=== PATIENT | male | born 1945 | race Caucasian/White ===

== ENCOUNTER 2018-05-24 14:45 | Inpatient (IN) | payer MEDICARE ==
[2018-05-24] MEDS ORDERED: HYDROmorphone 0.5 MG/0.5 ML Syringe IVPUSH ONE (14:53)
[2018-05-24] MEDS ORDERED: HYDROmorphone 0.5 MG/0.5 ML Syringe ONE (14:54)
--- NOTE | 2018-05-24 15:21 | EDM.PDOC ---
ED HPI GENERAL MEDICAL PROBLEM - General Chief Complaint: Lower Extremity Injury/Pain Stated Complaint: [facility] Time Seen by Provider: 05/24/18 15:00 Source of Information: Reports: Patient, EMS History Limitations: Reports: No Limitations - History of Present Illness INITIAL COMMENTS - FREE TEXT/NARRATIVE: 73-year-old male brought in by ambulance after slipping on the ice and landing hard on his left hip. He has significant pain, unable to move the hip or bear weight. No other injury. Onset: Sudden Duration: Hour(s): (Within the last 2 hours) Location: Reports: Lower Extremity, Left Quality: Reports: Sharp Severity: Moderate Worsens with: Reports: Other (Attempted weightbearing), Movement Associated Symptoms: Reports: No Other Symptoms Left hip Pain Score (Numeric/FACES): 8 - Related Data Allergies Allergy/AdvReac Type Severity Reaction Status Date / Time hydromorphone [From Dilaudid] Allergy Intermediate Vomiting Verified 05/24/18 18 :23 Home Meds: Home Meds NK [No Known Home Meds] 05/24/18 [History] Past Medical History - Past Surgical History Cardiovascular Surgical History: Reports: Vascular Surgery GI Surgical History: Reports: Hernia, Abdominal, Hernia, Inguinal Social & Family History - Tobacco Use Smoking Status *Q: Current Every Day Smoker Years of Tobacco use: 55 Packs/Tins Daily: 2 Review of Systems - Review of Systems Review Of Systems: See Below Constitutional: Denies: Fever Respiratory: Denies: Shortness of Breath Cardiovascular: Reports: No Symptoms GI/Abdominal: Reports: No Symptoms Skin: Denies: Bruising Neurological: Denies: Paresthesia Psychiatric: Reports: No Symptoms ED EXAM, GENERAL - Physical Exam Exam: See Below Exam Limited By: No Limitations General Appearance: Alert, Mild Distress (Fairly uncomfortable, needing pain medication) Eye Exam: Bilateral Eye: Normal Inspection Head: Atraumatic Neck: Non-Tender Respiratory/Chest: No Respiratory Distress Cardiovascular: Regular Rate, Rhythm GI/Abdominal: Non-Tender Extremities: Other (Marked tenderness with palpation of the proximal femur laterally on the left side, with increased pain with any passive range of motion ). No: Pedal Edema Neurological: Alert, Oriented Psychiatric: Anxious Skin Exam: Warm, Dry Course - Vital Signs Last Recorded V/S: Last Vital Signs Temp 98.0 F 05/25/18 06:54 Pulse 90 05/25/18 06:54 Resp 18 05/25/18 06:54 BP 127/69 05/25/18 06:54 Pulse Ox 91 L 05/25/18 06:54 - Orders/Labs/Meds Orders: Active Orders 24 hr Category Date Time Status Patient Status [ADT] Routine ADT 05/24/18 17:02 Active Antiembolic Devices [RC] .Routine Care 05/24/18 17:02 Active Bedrest Bedside Commode [RC] ASDIRECTED Care 05/24/18 17:02 Active Intake and Output [RC] QSHIFT Care 05/24/18 17:02 Active Notify Provider Consults [RC] ASDIRECTED Care 05/24/18 17:02 Active Notify Provider Vital Signs [RC] ASDIRECTED Care 05/24/18 17:02 Active Oxygen Therapy [RC] PRN Care 05/24/18 17:02 Active RT Aerosol Therapy [RC] ASDIRECTED Care 05/24/18 17:02 Active VTE/DVT Education [RC] Per Unit Routine Care 05/24/18 17:02 Active Vital Signs [RC] Q4H Care 05/24/18 17:02 Active Consult to Physician [CONS] Routine Cons 05/24/18 17:02 Ordered Nothing per Oral After Midnight Diet [DIET] Diet 05/24/18 Dinner Active Acetaminophen [Tylenol] Med 05/24/18 17:02 Active 650 mg PO Q4H PRN Albuterol [Proventil Neb Soln] Med 05/24/18 17:02 Active 2.5 mg NEB Q4H PRN Docusate Sodium/Sennosides [Senna Plus] Med 05/24/18 17:02 Active 1 tab PO BID PRN Ibuprofen [Motrin] Med 05/24/18 17:02 Active 600 mg PO Q6H PRN Lactated Ringers [Ringers, Lactated] 1,000 ml Med 05/24/18 22:00 Active IV ASDIRECTED Magnesium Hydroxide [Milk of Magnesia] Med 05/24/18 17:02 Active 30 ml PO Q12H PRN Ondansetron [Zofran ODT] Med 05/24/18 17:02 Active 4 mg PO Q6H PRN Ondansetron [Zofran] Med 05/24/18 17:02 Active 4 mg IV Q6H PRN oxyCODONE Med 05/24/18 17:02 Active 5 mg PO Q4H PRN Sequential Compression Device [OM.PC] Per Unit Routine Oth 05/24/18 17:02 Ordered VTE Pharmacological Contraindications [AST] Per Unit Oth 05/24/18 17:02 Ordered Routine Resuscitation Status Routine Resus Stat 05/24/18 16:28 Ordered Medication Orders Acetaminophen (Tylenol) 650 mg PO Q4H PRN PRN Reason: Pain (Mild 1-3)/fever Last Admin: 05/25/18 02:27 Dose: 650 mg Albuterol (Proventil Neb Soln) 2.5 mg NEB Q4H PRN PRN Reason: Shortness Of Breath/wheezing Benzocaine/Menthol (Cepacol Sore Throat) 1 lozenge MUCMEM ASDIRECTED PRN PRN Reason: Other Lactated Ringer's (Ringers, Lactated) 1,000 mls @ 100 mls/hr IV ASDIRECTED CARLOS Last Admin: 05/25/18 02:29 Dose: 100 mls/hr Ibuprofen (Motrin) 600 mg PO Q6H PRN PRN Reason: Pain/Fever Last Admin: 05/25/18 00:24 Dose: 600 mg Magnesium Hydroxide (Milk Of Magnesia) 30 ml PO Q12H PRN PRN Reason: Constipation Morphine Sulfate (Morphine) 4 mg IVPUSH Q2H PRN PRN Reason: Pain (severe 7-10) Ondansetron HCl (Zofran Odt) 4 mg PO Q6H PRN PRN Reason: Nausea able to take PO Ondansetron HCl (Zofran) 4 mg IV Q6H PRN PRN Reason: Nausea/Vomiting Last Admin: 05/24/18 17:41 Dose: 4 mg Oxycodone HCl (Oxycodone) 5 mg PO Q4H PRN PRN Reason: Pain (moderate 4-6) Last Admin: 05/25/18 02:27 Dose: 5 mg Admin: 05/24/18 22:37 Dose: 5 mg Pneumococcal Polyvalent Vaccine (Pneumovax 23) 0.5 ml IM .ONCE ONE Stop: 05/27/18 09:01 Senna/Docusate Sodium (Senna Plus) 1 tab PO BID PRN PRN Reason: Constipation Meds: Medications Generic Name Dose Route Start Last Admin Trade Name Sanderq PRN Reason Stop Dose Admin Acetaminophen 650 mg 05/24/18 17:02 05/25/18 02:27 Tylenol PO 650 mg Q4H PRN Administration Pain (Mild 1-3)/fever Albuterol 2.5 mg 05/24/18 17:02 Proventil Neb Soln NEB Q4H PRN Shortness Of Breath/wheezing Benzocaine/Menthol 1 lozenge 05/24/18 22:24 Cepacol Sore Throat MUCMEM ASDIRECTED PRN Other Lactated Ringer's 1,000 mls @ 100 mls/hr 05/24/18 22:00 05/25/18 02:29 Ringers, Lactated IV 100 mls/hr ASDIRECTED CARLOS Administration Ibuprofen 600 mg 05/24/18 17:02 05/25/18 00:24 Motrin PO 600 mg Q6H PRN Administration Pain/Fever Magnesium Hydroxide 30 ml 05/24/18 17:02 Milk Of Magnesia PO Q12H PRN Constipation Morphine Sulfate 4 mg 05/24/18 18:16 Morphine IVPUSH Q2H PRN Pain (severe 7-10) Ondansetron HCl 4 mg 05/24/18 17:02 Zofran Odt PO Q6H PRN Nausea able to take PO Ondansetron HCl 4 mg 05/24/18 17:02 05/24/18 17:41 Zofran IV 4 mg Q6H PRN Administration Nausea/Vomiting Oxycodone HCl 5 mg 05/24/18 17:02 05/25/18 02:27 Oxycodone PO 5 mg Q4H PRN Administration Pain (moderate 4-6) Pneumococcal Polyvalent Vaccine 0.5 ml 05/27/18 09:00 Pneumovax 23 IM 05/27/18 09:01 .ONCE ONE Senna/Docusate Sodium 1 tab 05/24/18 17:02 Senna Plus PO BID PRN Constipation Discontinued Medications Generic Name Dose Route Start Last Admin Trade Name Sanderq PRN Reason Stop Dose Admin Hydromorphone HCl 0.5 mg 05/24/18 14:53 05/24/18 15:12 Dilaudid IVPUSH 05/24/18 14:54 0.5 mg ONETIME ONE Administration Hydromorphone HCl Confirm 05/24/18 14:54 05/24/18 17:11 Dilaudid Administered 05/24/18 14:55 Not Given Dose 0.5 mg .ROUTE .STK-MED ONE Hydromorphone HCl 1 mg 05/24/18 17:02 05/24/18 17:21 Dilaudid IVPUSH 0.5 mg Q2H PRN Administration Pain (severe 7-10) - Re-Assessments/Exams Free Text/Narrative Re-Assessment/Exam: 05/24/18 15:20 Patient was given 0.5 mg of IV Dilaudid, and a left hip x-ray and pelvis x-ray was obtained. 05/24/18 15:52 X-ray appears to have an intertrochanteric fracture of the left hip, very little if any displacement. Discussed with orthopedics, recommendation was for admission for stabilization and surgery tomorrow. Departure - Departure Time of Disposition: 17:13 Disposition: Admitted As Inpatient 64 Condition: Good, Fair Clinical Impression: Fracture, intertrochanteric, left femur Qualifiers: Encounter type: initial encounter Fracture type: closed Fracture alignment: nondisplaced Qualified Code(s): S72.145A - Nondisplaced intertrochanteric fracture of left femur, initial encounter for closed fracture - Discharge Information
--- NOTE | 2018-05-24 15:57 | CRLCR ---
3 VIEWS pelvis and left hip INDICATION: Injury. IMPRESSION: Nondisplaced intertrochanteric fracture left femur with minimal valgus angulation. Additional small bone fragment projecting inferior to the left ischium. FINDINGS: There is a curvilinear lucency through the intertrochanteric proximal left femur with minimal valgus angulation but no displacement. Fracture is better seen on the frogleg lateral view. Mild degenerative narrowing in the left hip joint space. Atherosclerotic vascular calcifications are present. Dictated by Cash Mckeon MD @ May 24 2018 3:51PM Signed by Dr. Cash Mckeon @ May 24 2018 3:57PM
--- NOTE | 2018-05-24 16:42 | PCM.HP ---
H&P History of Present Illness - General Date of Service: 05/24/18 Admit Problem/Dx: Admission Diagnosis/Problem Admission Diagnosis/Problem Hip fracture requiring operative repair Source of Information: Patient, Provider History Limitations: Reports: No Limitations - History of Present Illness Initial Comments - Free Text/Narative: Keny presents to the emergency room today with left hip pain after slipping and falling. He reports he lost his balance while trying to open a get and fell landing on his left hip. He reported immediate severe sharp pain in the left hip. This did not radiate. He didn't take anything to make it feel better. Moving around makes the pain worse. Pain medications in the emergency room have provided some relief. He felt well prior to the fall. No complaints of shortness of breath, abdominal pain, change in bowel or bladder habits or fevers. He did have one surgery more than 50 years ago and no history of difficulty with anesthesia. No family history of difficulty with anesthesia. He reports that he is able to walk 4-5 blocks before he is slowed by mild shortness of breath. He does not have any exertional chest pain. He is able to climb up and down the stairs without any difficulty a regular basis. Workup in the emergency room revealed a nondisplaced intertrochanteric fracture left hip. Orthopedics was consult and he will be admitted for surgical intervention tomorrow. - Related Data Allergies/Adverse Reactions: Allergies Allergy/AdvReac Type Severity Reaction Status Date / Time No Known Allergies Allergy Verified 05/24/18 15:04 Home Medications: Home Meds NK [No Known Home Meds] 05/24/18 [History] Past Medical History - Past Surgical History Cardiovascular Surgical History: Reports: Vascular Surgery GI Surgical History: Reports: Hernia, Abdominal, Hernia, Inguinal Social & Family History - Family History Cardiac: Denies: CAD Oncologic: Reports: Leukemia (brother) Other Family History: No family history of difficulty with anesthesia - Tobacco Use Smoking Status *Q: Current Every Day Smoker Years of Tobacco use: 55 Packs/Tins Daily: 2 - Caffeine Use Caffeine Use: Reports: Coffee - Alcohol Use Alcohol Use History: No - Recreational Drug Use Recreational Drug Use: No H&P Review of Systems - Review of Systems: Review Of Systems: See Below Free Text/Narrative: A complete 12 point review of systems was obtained. Pertinent positives and negatives are noted in the history of present illness. All other systems were reviewed and were negative except as noted. Exam - Exam Exam: See Below - Vital Signs Vital Signs: Last Vital Signs Temp 36.0 C 05/24/18 15:10 Pulse 81 05/24/18 15:10 Resp 14 05/24/18 15:10 BP 138/71 05/24/18 15:10 Pulse Ox 92 L 05/24/18 15:10 Weight: 74.843 kg - Exam Quality Assessment: No: Supplemental Oxygen General: Alert, Oriented, Cooperative. No: Mild Distress HEENT: Conjunctiva Clear. No: Mucosa Moist & [place] (dry), Scleral Icterus Neck: Supple, Trachea Midline. No: Lymphadenopathy Lungs: Clear to Auscultation, Normal Respiratory Effort. No: Wheezing Cardiovascular: Regular Rate, Regular Rhythm, Systolic Murmur (apex, soft blowing) GI/Abdominal Exam: Normal Bowel Sounds, Soft, Non-Tender, No Distention Extremities: No Pedal Edema, Other (tender over greater trochanter). No: Increased Warmth Skin: Warm, Dry, Ecchymosis (mild left lateral hip ), Other (healed midline chest and abdominal scar) Neuro Extensive - Mental Status: Alert, Oriented x3, Nl Response to Commands Neuro Extensive - Motor, Sensory, Reflexes: CN II-XII Intact. No: Dysarthria, Abnormal Motor, Tremor Psychiatric: Alert, Normal Affect - Patient Data Imaging Impressions Last 24 hrs: Hip x-ray - images personally reviewed - there is evidence for a nondisplaced entered trochanteric fracture of the left hip. *Q Meaningful Use (ADM) - VTE *Q VTE Pharmacological Contraindications *Q: Patient Scheduled Surgery - VTE Risk Assess *Q Each Risk Factor Represents 1 Point: Abnormal Pulmonary Function (COPD) Total Score 1 Point Risk Factors: 1 Each Risk Factor Represents 3 Points: Age 75 Years or Greater Total Score 3 Point Risk Factors: 3 Each Risk Factor Represents 5 Points: Hip, Pelvis or Leg Fracture, Less than 1 month Total Score 5 Point Risk Factors: 5 - Problem List (1) Fracture, intertrochanteric, left femur SNOMED Code(s): 876794552 ICD Code: S72.142A - DISPLACED INTERTROCHANTERIC FRACTURE OF LEFT FEMUR, INIT Status: Acute Current Visit: Yes Qualifiers: Encounter type: initial encounter Fracture type: closed Fracture alignment: nondisplaced Qualified Code(s): S72.145A - Nondisplaced intertrochanteric fracture of left femur, initial encounter for closed fracture (2) Tobacco dependence SNOMED Code(s): 92654222 ICD Code: F17.200 - NICOTINE DEPENDENCE, UNSPECIFIED, UNCOMPLICATED Status : Acute Current Visit: Yes Problem List Initiated/Reviewed/Updated: Yes Orders Last 24hrs: Active Orders 24 hr Category Date Time Status Patient Status Manage Transfer [TRANSFER] Routine ADT 05/24/18 16:25 Ordered Resuscitation Status Routine Resus Stat 05/24/18 16:28 Ordered Assessment/Plan Comment:: ASSESSMENT AND PLAN - Nondisplaced intertrochanteric fracture of the left hip - secondary to fall with trauma. Pain adequately controlled at this time. Surgical intervention is indicated. Patient hasn't had a good functional status and I believe this is acceptable risk for surgery at this time. He is in optimal achievable medical condition at this time. -Orthopedics consult -Pain control -Nonweightbearing left leg -Physical therapy after surgery Tobacco dependence - no interest in quitting at this time. No history of COPD. He does have a cough. -Chest x-ray -Encourage cessation Maintenance issues - - DVT prophylaxis - mechanical - GI prophylaxis - not indicated - Nutrition - regular diet this evening and nothing by mouth after midnight - Power catheter - not indicated at this time CODE STATUS - full code Admission justification - This patient will be admitted for inpatient services and is medically appropriate meeting medical necessity for inpatient admission as outlined in my documentation. I reasonably expect the patient will require inpatient services that span a period time over 2 midnights. I reasonably expect this patient to be discharged or transferred within 96 hours after admission to the [facility]. Disposition - I would anticipate discharge home versus possibly subacute rehabilitation Calvin Beavers M.D.
[2018-05-24] MEDS ORDERED: Magnesium Hydroxide 400 MG/5 ML Susp 30 ML Cup PO PRN (17:02)
[2018-05-24] MEDS ORDERED: Albuterol 0.083% 2.5 MG/3 ML Neb Soln NEB PRN (17:02)
[2018-05-24] MEDS ORDERED: HYDROmorphone 0.5 MG/0.5 ML Syringe IVPUSH PRN (17:02)
[2018-05-24] MEDS ORDERED: Acetaminophen 325 MG Tab PO PRN (17:02)
[2018-05-24] MEDS: Ondansetron 4 MG/2 ML SDV IV PRN (17:41)
[2018-05-24] MEDS ORDERED: Morphine 4 MG/ML Syringe IVPUSH PRN (18:16)
--- NOTE | 2018-05-24 20:02 | CRLCR ---
INDICATION: Cough. Portable chest. COMPARISON: No comparison studies are available. Findings: Normal cardiac mediastinal silhouette. Median sternotomy. No acute airspace or interstitial process. No effusion or pneumothorax. IMPRESSION: 1. No acute pulmonary process. Dictated by Niya Stevens MD @ May 24 2018 8:01PM Signed by Dr. Niya Stevens @ May 24 2018 8:01PM
[2018-05-24] MEDS ORDERED: Benzocaine/Cetylpyridinium/Menthol Lozenge MUCMEM PRN (22:24)
[2018-05-24] MEDS: oxyCODONE 5 MG Tab PO PRN (22:37)
[2018-05-25] MEDS: Ibuprofen 600 MG Tab PO PRN (00:24)
[2018-05-25] MEDS: oxyCODONE 5 MG Tab PO PRN ×3 (02:27→21:57)
[2018-05-25] MEDS: Lactated Ringers 1,000 ML IV SCH ×3 (02:29→22:00)
[2018-05-25] MEDS ORDERED: Propofol 200 MG/20 ML SDV ONE (08:18)
[2018-05-25] MEDS ORDERED: fentaNYL 100 MCG/2 ML SDV ONE (08:18)
[2018-05-25] MEDS ORDERED: Midazolam 1 MG/ML 2 ML SDV ONE (08:18)
[2018-05-25] MEDS ORDERED: Bupivacaine 0.5%/EPINEPHrine 1:200,000 50 ML MDV ONE (08:21)
--- NOTE | 2018-05-25 12:22 | PCM.PN ---
- General Info Date of Service: 05/25/18 Subjective Update: Mr. Morgan is a 73-year-old gentleman who was admitted yesterday to the emergency department with a left intertrochanteric hip fracture secondary to a fall. He is been stable overnight using minimal pain medications. Plan is for surgical repair today. Functional Status: Reports: Pain Controlled - Review of Systems General: Denies: Fever, Chills Pulmonary: Reports: No Symptoms Cardiovascular: Reports: No Symptoms Gastrointestinal: Reports: No Symptoms - Patient Data Vitals - Most Recent: Last Vital Signs Temp 98.0 F 05/25/18 11:00 Pulse 92 05/25/18 11:00 Resp 20 05/25/18 11:00 BP 136/58 L 05/25/18 11:00 Pulse Ox 83 L 05/25/18 11:00 Weight - Most Recent: 165 lb 0.009 oz I&O - Last 24 Hours: Intake & Output 05/24/18 05/25/18 05/25/18 22:59 06:59 14:59 Intake Total 1747 Output Total 600 275 Balance -600 1472 Lab Results Last 24 Hours: Laboratory Results - last 24 hr 05/24/18 05/24/18 05/25/18 Range/Units 17:19 17:19 05:58 WBC 19.7 H (4.5-11.0) K/uL RBC 5.59 (4.30-5.90) M/uL Hgb 15.9 H (12.0-15.0) g/dL Hct 49.7 (40.0-54.0) % MCV 89 (80-98) fL MCH 28 (27-31) pg MCHC 32 (32-36) % Plt Count 333 (150-400) K/uL Sodium 143 139 L (140-148) mmol/L Potassium 4.3 4.2 (3.6-5.2) mmol/L Chloride 106 106 (100-108) mmol/L Carbon Dioxide 31 28 (21-32) mmol/L Anion Gap 6.4 9.2 (5.0-14.0) mmol/L BUN 39 H 38 H (7-18) mg/dL Creatinine 1.4 H 1.4 H (0.8-1.3) mg/dL Est Cr Clr Drug Dosing 48.26 48.26 mL/min Estimated GFR (MDRD) 49 L 49 L (>60) Glucose 105 111 H (74-106) mg/dL Calcium 8.9 8.3 L (8.5-10.1) mg/dL 05/25/18 Range/Units 05:58 WBC 13.9 H (4.5-11.0) K/uL RBC 4.93 (4.30-5.90) M/uL Hgb 14.3 (12.0-15.0) g/dL Hct 43.7 (40.0-54.0) % MCV 89 (80-98) fL MCH 29 (27-31) pg MCHC 33 (32-36) % Plt Count 264 (150-400) K/uL Sodium (140-148) mmol/L Potassium (3.6-5.2) mmol/L Chloride (100-108) mmol/L Carbon Dioxide (21-32) mmol/L Anion Gap (5.0-14.0) mmol/L BUN (7-18) mg/dL Creatinine (0.8-1.3) mg/dL Est Cr Clr Drug Dosing mL/min Estimated GFR (MDRD) (>60) Glucose (74-106) mg/dL Calcium (8.5-10.1) mg/dL Med Orders - Current: Current Medications Acetaminophen (Tylenol) 650 mg PO Q4H PRN PRN Reason: Pain (Mild 1-3)/fever Last Admin: 05/25/18 02:27 Dose: 650 mg Albuterol (Proventil Neb Soln) 2.5 mg NEB Q4H PRN PRN Reason: Shortness Of Breath/wheezing Benzocaine/Menthol (Cepacol Sore Throat) 1 lozenge MUCMEM ASDIRECTED PRN PRN Reason: Other Lactated Ringer's (Ringers, Lactated) 1,000 mls @ 100 mls/hr IV ASDIRECTED CARLOS Last Admin: 05/25/18 11:05 Dose: 100 mls/hr Ibuprofen (Motrin) 600 mg PO Q6H PRN PRN Reason: Pain/Fever Last Admin: 05/25/18 00:24 Dose: 600 mg Magnesium Hydroxide (Milk Of Magnesia) 30 ml PO Q12H PRN PRN Reason: Constipation Morphine Sulfate (Morphine) 4 mg IVPUSH Q2H PRN PRN Reason: Pain (severe 7-10) Ondansetron HCl (Zofran Odt) 4 mg PO Q6H PRN PRN Reason: Nausea able to take PO Ondansetron HCl (Zofran) 4 mg IV Q6H PRN PRN Reason: Nausea/Vomiting Last Admin: 05/24/18 17:41 Dose: 4 mg Oxycodone HCl (Oxycodone) 5 mg PO Q4H PRN PRN Reason: Pain (moderate 4-6) Last Admin: 05/25/18 02:27 Dose: 5 mg Pneumococcal Polyvalent Vaccine (Pneumovax 23) 0.5 ml IM .ONCE ONE Stop: 05/27/18 09:01 Senna/Docusate Sodium (Senna Plus) 1 tab PO BID PRN PRN Reason: Constipation Discontinued Medications Bupivacaine HCl/Epinephrine Bitart (Marcaine 0.5%/Epinephrine 1:200,000) Confirm Administered Dose 50 ml .ROUTE .STK-MED ONE Stop: 05/25/18 08:22 Fentanyl (Sublimaze) Confirm Administered Dose 100 mcg .ROUTE .STK-MED ONE Stop: 05/25/18 08:19 Hydromorphone HCl (Dilaudid) 0.5 mg IVPUSH ONETIME ONE Stop: 05/24/18 14:54 Last Admin: 05/24/18 15:12 Dose: 0.5 mg Hydromorphone HCl (Dilaudid) Confirm Administered Dose 0.5 mg .ROUTE .STK-MED ONE Stop: 05/24/18 14:55 Last Admin: 05/24/18 17:11 Dose: Not Given Hydromorphone HCl (Dilaudid) 1 mg IVPUSH Q2H PRN PRN Reason: Pain (severe 7-10) Last Admin: 05/24/18 17:21 Dose: 0.5 mg Midazolam HCl (Versed 1 Mg/Ml) Confirm Administered Dose 2 mg .ROUTE .STK-MED ONE Stop: 05/25/18 08:19 Propofol (Diprivan 20 Ml) Confirm Administered Dose 200 mg .ROUTE .STK-MED ONE Stop: 05/25/18 08:19 - Exam Quality Assessment: DVT Prophylaxis General: Alert, Oriented, Cooperative, Moderate Distress Lungs: Clear to Auscultation, Normal Respiratory Effort Cardiovascular: Regular Rate, Regular Rhythm, No Murmurs GI/Abdominal Exam: Soft, Non-Tender, No Organomegaly, No Distention - Problem List Review Problem List Initiated/Reviewed/Updated: Yes - My Orders Last 24 Hours: My Active Orders 05/26/18 05:00 BASIC METABOLIC PANEL,BMP [CHEM] Timed CBC WITH AUTO DIFF [HEME] Timed MAGNESIUM [CHEM] Timed - Plan Plan:: ASSESSMENT AND PLAN - Nondisplaced intertrochanteric fracture of the left hip - secondary to fall with trauma. Pain adequately controlled at this time. Surgical intervention is indicated. -Orthopedics consult, surgical repair today -Pain control -Nonweightbearing left leg -Physical therapy after surgery Tobacco dependence - no interest in quitting at this time. No history of COPD. He does have a cough. -Chest x-ray -Encourage cessation Maintenance issues - - DVT prophylaxis - mechanical - GI prophylaxis - not indicated - Nutrition - regular diet this evening and nothing by mouth after midnight - Power catheter - not indicated at this time CODE STATUS - full code Admission justification - This patient will be admitted for inpatient services and is medically appropriate meeting medical necessity for inpatient admission as outlined in my documentation. I reasonably expect the patient will require inpatient services that span a period time over 2 midnights. I reasonably expect this patient to be discharged or transferred within 96 hours [facility] Disposition - I would anticipate discharge home versus possibly subacute rehabilitation
[2018-05-25] MEDS ORDERED: Nozin Nasal Sanitizer NASBOTH ONE (12:53)
[2018-05-25] MEDS ORDERED: Lactated Ringers 1,000 ML ONE (14:53)
--- NOTE | 2018-05-25 16:17 | PCM.CONS ---
H&P History of Present Illness - General Date of Service: 05/25/18 Admit Problem/Dx: Admission Diagnosis/Problem Admission Diagnosis/Problem Hip fracture requiring operative repair Source of Information: Patient, Family, Provider History Limitations: Reports: No Limitations - History of Present Illness Initial Comments - Free Text/Narative: Trent is a very pleasant 73-year-old male who sustained a fall getting ready to go to work on the day of admission. He still works as a cashier host/hostess.Evaluation in the emergency room revealed a nondisplaced intertrochanteric fracture of the left hip.He was admitted for treatment of the hip fracture. Recommend treatment of the fracture with fixation using an intramedullary device. Risks, benefits and potential complications of the procedure were discussed and he agrees to proceed. Onset of Symptoms: Reports: Sudden Location: Reports: Lower Extremity, Left Improves with: Reports: Immobilization Worsens with: Reports: Movement Associated Symptoms: Reports: No Other Symptoms Left hip Pain Score (Numeric/FACES): 8 - Related Data Allergies/Adverse Reactions: Allergies Allergy/AdvReac Type Severity Reaction Status Date / Time hydromorphone [From Dilaudid] Allergy Intermediate Vomiting Verified 05/24/18 18 :23 Home Medications: Home Meds NK [No Known Home Meds] 05/24/18 [History] Past Medical History - Past Surgical History Cardiovascular Surgical History: Reports: Vascular Surgery GI Surgical History: Reports: Hernia, Abdominal, Hernia, Inguinal Social & Family History - Family History Cardiac: Denies: CAD Oncologic: Reports: Leukemia Other Family History: No family history of difficulty with anesthesia - Tobacco Use Smoking Status *Q: Current Every Day Smoker Years of Tobacco use: 55 Packs/Tins Daily: 2 - Caffeine Use Caffeine Use: Reports: Coffee - Recreational Drug Use Recreational Drug Use: No H&P Review of Systems - Review of Systems: Review Of Systems: ROS reveals no pertinent complaints other than HPI. Exam - Exam Exam: See Below - Vital Signs Vital Signs: Last Vital Signs Temp 36.4 C 05/25/18 15:45 Pulse 86 05/25/18 15:45 Resp 16 05/25/18 15:45 BP 113/56 L 05/25/18 15:45 Pulse Ox 90 L 05/25/18 15:45 Weight: 74.843 kg - Exam General: Alert, Oriented, 4 HEENT: PERRLA, Hearing Intact, Mucosa Moist & [place], Nares Patent, Normal Nasal Septum, Posterior Pharynx Clear, Conjunctiva Clear, EOMI, EACs Clear, TMs Clear Neck: Supple, Trachea Midline, 2 Peripheral Pulses: 2+: Dorsalis Pedis (L), Dorsalis Pedis (R) Skin: Warm, Dry, Intact Neurological: Cranial Nerves Intact, Reflexes Equal Bilateral Neuro Extensive - Mental Status: Alert, Oriented x3, Normal Mood/Affect, Normal Cognition Neuro Extensive - Motor, Sensory, Reflexes: CN II-XII Intact, Normal Gait, Normal Reflexes Psychiatric: Alert, Normal Affect, Normal Mood Physical Exam Comments:: He has pain with attempted active motion and log roll of the left hip. There is no discernible limb length discrepancy. there is no deformity or significant bruising of the left hip. No skin lacerations.His sensation distally is normal. - Patient Data Lab Results Last 24 hrs: Laboratory Results - last 24 hr 05/24/18 05/24/18 05/25/18 Range/Units 17:: 05:58 WBC 19.7 H (4.5-11.0) K/uL RBC 5.59 (4.30-5.90) M/uL Hgb 15.9 H (12.0-15.0) g/dL Hct 49.7 (40.0-54.0) % MCV 89 (80-98) fL MCH 28 (27-31) pg MCHC 32 (32-36) % Plt Count 333 (150-400) K/uL Sodium 143 139 L (140-148) mmol/L Potassium 4.3 4.2 (3.6-5.2) mmol/L Chloride 106 106 (100-108) mmol/L Carbon Dioxide 31 28 (21-32) mmol/L Anion Gap 6.4 9.2 (5.0-14.0) mmol/L BUN 39 H 38 H (7-18) mg/dL Creatinine 1.4 H 1.4 H (0.8-1.3) mg/dL Est Cr Clr Drug Dosing 48.26 48.26 mL/min Estimated GFR (MDRD) 49 L 49 L (>60) Glucose 105 111 H (74-106) mg/dL Calcium 8.9 8.3 L (8.5-10.1) mg/dL 05/25/18 Range/Units 05:58 WBC 13.9 H (4.5-11.0) K/uL RBC 4.93 (4.30-5.90) M/uL Hgb 14.3 (12.0-15.0) g/dL Hct 43.7 (40.0-54.0) % MCV 89 (80-98) fL MCH 29 (27-31) pg MCHC 33 (32-36) % Plt Count 264 (150-400) K/uL Sodium (140-148) mmol/L Potassium (3.6-5.2) mmol/L Chloride (100-108) mmol/L Carbon Dioxide (21-32) mmol/L Anion Gap (5.0-14.0) mmol/L BUN (7-18) mg/dL Creatinine (0.8-1.3) mg/dL Est Cr Clr Drug Dosing mL/min Estimated GFR (MDRD) (>60) Glucose (74-106) mg/dL Calcium (8.5-10.1) mg/dL Result Diagrams: 05/26/18 06:01 05/26/18 06:01 Consult PN Assessment/Plan (1) Fracture, intertrochanteric, left femur SNOMED Code(s): 418610899 Code(s): S72.142A - DISPLACED INTERTROCHANTERIC FRACTURE OF LEFT FEMUR, INIT Current Visit: Yes Qualifiers: Encounter type: initial encounter Fracture type: closed Fracture alignment: nondisplaced Qualified Code(s): S72.145A - Nondisplaced intertrochanteric fracture of left femur, initial encounter for closed fracture Problem List Initiated/Reviewed/Updated: Yes My Orders Last 24 Hours: My Active Orders 05/25/18 13:00 OR Fluoro-NC [CR] Routine 05/25/18 15:20 Consult to Physical Therapy [PT Evaluation and Treatment] [CONS] Routine 05/25/18 15:21 Consult to Occupational Therapy [OT Evaluation and Treatment] [CONS] Routine 05/25/18 Dinner Heart Healthy Diet [DIET] Plan: plan fixation of intertrochanteric fracture left hip with a intramedullary nail. Procedure was discussed with the patient and his family. There are no contraindications to surgery.Plan to proceed with that today.
[2018-05-26] MEDS: oxyCODONE 5 MG Tab PO PRN ×2 (07:35→13:39)
--- NOTE | 2018-05-26 07:59 | PCM.OPNOTE ---
- General Post-Op/Procedure Note Date of Surgery/Procedure: 05/25/18 Operative Procedure(s): open treatment of intertrochanteric fracture left hip with intramedullary fixation device. Findings: nondisplaced intertrochanteric fracture left hip Pre Op Diagnosis: Nondisplaced intertrochanteric fracture left hip Post-Op Diagnosis: same Anesthesia Technique: Spinal Primary Surgeon: Dylan Paris EBL in mLs: 50 Complications: None Condition: Good Free Text/Narrative:: Intake & Output 05/25/18 05/26/18 05/26/18 22:59 06:59 14:59 Intake Total 915 1141 Output Total 300 465 50 Balance 615 676 -50 Indications: Patient is a 73-year-old male sustained a fall resulting in an intertrochanteric fracture of his left hip. He is admitted for surgical fixation of the fracture. Risks, benefits and potential complications of surgery as well as nonoperative treatment were discussed. Patient agrees to proceed with surgery. procedure: After adequate spinal anesthesia was obtained and administration of preoperative antibiotic patient was placed on the fracture table. Left leg was placed in the traction boot. Right leg was placed in a flexed position in the well leg larios. Fluoroscopy was used to evaluate the fracture. This was maintained in a nondisplaced position.The left hip was then prepped and draped in a sterile fashion. Small incision was made from the tip of the trochanter distally. This was carried down through the subcutaneous tissues. Tensor fascia was then split and blunt dissection carried down to the tip of the trochanter.A guidepin was then placed under fluoroscopic guidance into the trochanter and femoral canal.Soft tissue protector was placed and the large reamer was placed over the guidepin and into the femoral canal.a 12 mm diameter tu was then placed using the guide arm across the fracture. Position was confirmed using fluoroscopy.The guide for the femoral neck screw was then placed. A separate incision was made distal to the trochanter. Carried down through the skin and fascia vidhi. The guide was then positioned against the lateral cortex and the guide pin then placed up into the femoral head and neck. Position was confirmed using AP and lateral images. Lateral cortex was drilled. Screw was then tapped into position over the guide pin into the femoral head. Position was confirmed using fluoro Separate small incision was made. Cannula was placed against the cortex and drilled. This was measured to a 36 mm screw. the screw was placed and position confirmed. The insertion arm was then removed. Final position and fixation was confirmed using fluoroscopy in AP and lateral images. Wounds were irrigated. Tensor fascia was closed the proximal incision with0 Vicryl. Skin was closed with 2-0 Vicryl and a running 3-0 Monocryl.The smaller incisions were closed with 2-0 Vicryl and 3-0 Monocryl. Steri-Strips were applied.Sterile gauze dressing was placed and held in position with cloth tape.Patient tolerated the procedure very well there were no complications and he was taken from the operating room in a stable condition.
[2018-05-26] MEDS: Ondansetron 4 MG/2 ML SDV IV PRN (09:10)
[2018-05-26] MEDS: Magnesium Oxide 400 MG Tab PO SCH ×2 (10:34→20:15)
[2018-05-26] MEDS: Magnesium Sulfate/Water 2 GM in Premix Bag 1 BAG IV SCH ×2 (10:35→16:28)
[2018-05-26] MEDS: Lactated Ringers 1,000 ML IV SCH (10:37)
[2018-05-26] MEDS: Ibuprofen 600 MG Tab PO PRN ×2 (12:21→20:15)
--- NOTE | 2018-05-26 13:15 | PCM.PN ---
- General Info Date of Service: 05/26/18 Subjective Update: Mr. Morgan is status post surgical repair of hip fracture done yesterday by Dr. Paris. He has been stable since surgery with good vital signs and no significant temperature elevations. He did have an episode of nausea vomiting earlier this morning, but was feeling improved when seen later in the morning. Functional Status: Reports: Pain Controlled, Ambulating, Urinating - Review of Systems General: Reports: Weakness. Denies: Fever, Chills Pulmonary: Reports: No Symptoms Cardiovascular: Reports: No Symptoms Gastrointestinal: Reports: Nausea, Vomiting. Denies: Abdominal Pain, Difficulty Swallowing, Hematochezia, Melena - Patient Data Vitals - Most Recent: Last Vital Signs Temp 97 F 05/26/18 10:52 Pulse 75 05/26/18 10:52 Resp 24 H 05/26/18 10:52 BP 148/72 H 05/26/18 10:52 Pulse Ox 93 L 05/26/18 10:52 Weight - Most Recent: 165 lb 0.009 oz I&O - Last 24 Hours: Intake & Output 05/25/18 05/26/18 05/26/18 22:59 06:59 14:59 Intake Total 915 1141 468 Output Total 300 465 290 Balance 615 676 178 Lab Results Last 24 Hours: Laboratory Results - last 24 hr 05/26/18 05/26/18 05/26/18 Range/Units 01:38 06:01 06:01 WBC 12.5 H (4.5-11.0) K/uL RBC 4.85 (4.30-5.90) M/uL Hgb 13.8 (12.0-15.0) g/dL Hct 42.6 (40.0-54.0) % MCV 88 (80-98) fL MCH 29 (27-31) pg MCHC 32 (32-36) % Plt Count 233 (150-400) K/uL Neut % (Auto) 72 H (36-66) % Lymph % (Auto) 12 L (24-44) % [place] % (Auto) 14 H (2-6) % Eos % (Auto) 2 (2-4) % Baso % (Auto) 1 (0-1) % Sodium 138 L (140-148) mmol/L Potassium 4.2 (3.6-5.2) mmol/L Chloride 104 (100-108) mmol/L Carbon Dioxide 27 (21-32) mmol/L Anion Gap 11.2 (5.0-14.0) mmol/L BUN 23 H (7-18) mg/dL Creatinine 1.1 (0.8-1.3) mg/dL Est Cr Clr Drug Dosing 61.42 mL/min Estimated GFR (MDRD) > 60 (>60) Glucose 99 (74-106) mg/dL Calcium 8.2 L (8.5-10.1) mg/dL Magnesium 1.5 L (1.8-2.4) mg/dL Urine Color Yellow Urine Appearance Clear Urine pH 6.5 (4.5-8.0) Ur Specific [place] 1.015 (1.008-1.030) Urine Protein Trace (NEGATIVE) mg/dL Urine Glucose (UA) Normal (NEGATIVE) mg/dL Urine Ketones 15 H (NEGATIVE) mg/dL Urine Occult Blood Trace (NEGATIVE) Urine Nitrite Negative (NEGAITVE) Urine Bilirubin Negative (NEGATIVE) Urine Urobilinogen Normal (NORMAL) mg/dL Ur Leukocyte Esterase Negative (NEGATIVE) Urine RBC 0-5 (0-5) Urine WBC 0-5 (0-5) Ur Epithelial Cells Few Amorphous Sediment Not seen Urine Bacteria Few Urine Mucus Not seen Med Orders - Current: Current Medications Acetaminophen (Tylenol) 650 mg PO Q4H PRN PRN Reason: Pain (Mild 1-3)/fever Last Admin: 05/25/18 02:27 Dose: 650 mg Albuterol (Proventil Neb Soln) 2.5 mg NEB Q4H PRN PRN Reason: Shortness Of Breath/wheezing Last Admin: 05/25/18 12:42 Dose: 2.5 mg Benzocaine/Menthol (Cepacol Sore Throat) 1 lozenge MUCMEM ASDIRECTED PRN PRN Reason: Other Lactated Ringer's (Ringers, Lactated) 1,000 mls @ 100 mls/hr IV ASDIRECTED CARLOS Last Admin: 05/26/18 10:37 Dose: 100 mls/hr Magnesium Sulfate 2 gm/ Premix 50 mls @ 25 mls/hr IV Q6H CARLOS Stop: 05/26/18 17:59 Last Admin: 05/26/18 10:35 Dose: 25 mls/hr Ibuprofen (Motrin) 600 mg PO Q6H PRN PRN Reason: Pain/Fever Last Admin: 05/26/18 12:21 Dose: 600 mg Magnesium Hydroxide (Milk Of Magnesia) 30 ml PO Q12H PRN PRN Reason: Constipation Magnesium Oxide (Magnesium Oxide) 400 mg PO BID CARLOS Last Admin: 05/26/18 10:34 Dose: 400 mg Morphine Sulfate (Morphine) 4 mg IVPUSH Q2H PRN PRN Reason: Pain (severe 7-10) Ondansetron HCl (Zofran Odt) 4 mg PO Q6H PRN PRN Reason: Nausea able to take PO Ondansetron HCl (Zofran) 4 mg IV Q6H PRN PRN Reason: Nausea/Vomiting Last Admin: 05/26/18 09:10 Dose: 4 mg Oxycodone HCl (Oxycodone) 5 mg PO Q4H PRN PRN Reason: Pain (moderate 4-6) Last Admin: 05/26/18 07:35 Dose: 5 mg Pneumococcal Polyvalent Vaccine (Pneumovax 23) 0.5 ml IM .ONCE ONE Stop: 05/27/18 09:01 Senna/Docusate Sodium (Senna Plus) 1 tab PO BID PRN PRN Reason: Constipation Last Admin: 05/26/18 07:41 Dose: 1 tab Discontinued Medications Bandage/Support Products ( Nasal Fabric Normalizer) 1 applic NASBOTH ONETIME ONE Stop: 05/25/18 12:54 Last Admin: 05/25/18 13:00 Dose: 1 dose Bupivacaine HCl/Epinephrine Bitart (Marcaine 0.5%/Epinephrine 1:200,000) Confirm Administered Dose 50 ml .ROUTE .STK-MED ONE Stop: 05/25/18 08:22 Fentanyl (Sublimaze) Confirm Administered Dose 100 mcg .ROUTE .STK-MED ONE Stop: 05/25/18 08:19 Hydromorphone HCl (Dilaudid) 0.5 mg IVPUSH ONETIME ONE Stop: 05/24/18 14:54 Last Admin: 05/24/18 15:12 Dose: 0.5 mg Hydromorphone HCl (Dilaudid) Confirm Administered Dose 0.5 mg .ROUTE .STK-MED ONE Stop: 05/24/18 14:55 Last Admin: 05/24/18 17:11 Dose: Not Given Hydromorphone HCl (Dilaudid) 1 mg IVPUSH Q2H PRN PRN Reason: Pain (severe 7-10) Last Admin: 05/24/18 17:21 Dose: 0.5 mg Lactated Ringer's (Ringers, Lactated) Confirm Administered Dose 1,000 mls @ as directed .ROUTE .STK-MED ONE Stop: 05/25/18 14:54 Midazolam HCl (Versed 1 Mg/Ml) Confirm Administered Dose 2 mg .ROUTE .STK-MED ONE Stop: 05/25/18 08:19 Propofol (Diprivan 20 Ml) Confirm Administered Dose 200 mg .ROUTE .STK-MED ONE Stop: 05/25/18 08:19 - Exam Quality Assessment: DVT Prophylaxis General: Alert, Oriented, Cooperative, Mild Distress Lungs: Clear to Auscultation, Normal Respiratory Effort Cardiovascular: Regular Rate, Regular Rhythm, No Murmurs GI/Abdominal Exam: Soft, Non-Tender, No Organomegaly, No Distention - Problem List Review Problem List Initiated/Reviewed/Updated: Yes - My Orders Last 24 Hours: My Active Orders 05/26/18 09:15 Magnesium Oxide 400 mg PO BID 05/26/18 10:00 Magnesium Sulfate/Water [Magnesium Sulfate 2 GM in Water 50 ML] 2 gm Premix Bag 1 bag IV Q6H 05/27/18 05:00 MAGNESIUM [CHEM] Timed - Plan Plan:: ASSESSMENT AND PLAN - Nondisplaced intertrochanteric fracture of the left hip - secondary to fall with trauma. Status post surgical repair yesterday. -Postoperative care per Dr. Paris Tobacco dependence - no interest in quitting at this time. No history of COPD. -Encourage cessation Maintenance issues - - DVT prophylaxis - mechanical - GI prophylaxis - not indicated - Nutrition - regular diet this evening and nothing by mouth after midnight - Power catheter - not indicated at this time CODE STATUS - full code Admission justification - This patient will be admitted for inpatient services and is medically appropriate meeting medical necessity for inpatient admission as outlined in my documentation. I reasonably expect the patient will require inpatient services that span a period time over 2 midnights. I reasonably expect this patient to be discharged or transferred within 96 hours [facility]. Disposition - I would anticipate discharge home versus possibly subacute rehabilitation
[2018-05-26] MEDS: Ondansetron 4 MG Tab.DIS PO PRN ×2 (13:40→20:15)
[2018-05-26] MEDS ORDERED: Acetaminophen/HYDROcodone 325-5 MG Tab PO PRN (17:13)
--- NOTE | 2018-05-26 17:20 | PCM.SURGPN ---
- General Info Date of Service: 05/26/18 POD#: 1 Post-Op Diagnosis: S/P intrameduillary nail left hip - Review of Systems Gastrointestinal: Reports: Nausea Neurological: Reports: No Symptoms Psychiatric: Reports: No Symptoms (Nausea and vomiting with oxycodone) - Patient Data Vitals - Most Recent: Last Vital Signs Temp 36.3 C 05/26/18 16:22 Pulse 81 05/26/18 16:22 Resp 20 05/26/18 16:22 BP 131/79 05/26/18 16:22 Pulse Ox 92 L 05/26/18 16:22 Weight - Most Recent: 74.843 kg I&O - Last 24 Hours: Intake & Output 05/26/18 05/26/18 05/26/18 06:59 14:59 22:59 Intake Total 1141 518 Output Total 465 490 250 Balance 676 28 -250 Lab Results Last 24 Hrs: Laboratory Results - last 24 hr 05/26/18 05/26/18 05/26/18 Range/Units 01:38 06:01 06:01 WBC 12.5 H (4.5-11.0) K/uL RBC 4.85 (4.30-5.90) M/uL Hgb 13.8 (12.0-15.0) g/dL Hct 42.6 (40.0-54.0) % MCV 88 (80-98) fL MCH 29 (27-31) pg MCHC 32 (32-36) % Plt Count 233 (150-400) K/uL Neut % (Auto) 72 H (36-66) % Lymph % (Auto) 12 L (24-44) % [place] % (Auto) 14 H (2-6) % Eos % (Auto) 2 (2-4) % Baso % (Auto) 1 (0-1) % Sodium 138 L (140-148) mmol/L Potassium 4.2 (3.6-5.2) mmol/L Chloride 104 (100-108) mmol/L Carbon Dioxide 27 (21-32) mmol/L Anion Gap 11.2 (5.0-14.0) mmol/L BUN 23 H (7-18) mg/dL Creatinine 1.1 (0.8-1.3) mg/dL Est Cr Clr Drug Dosing 61.42 mL/min Estimated GFR (MDRD) > 60 (>60) Glucose 99 (74-106) mg/dL Calcium 8.2 L (8.5-10.1) mg/dL Magnesium 1.5 L (1.8-2.4) mg/dL Urine Color Yellow Urine Appearance Clear Urine pH 6.5 (4.5-8.0) Ur Specific [place] 1.015 (1.008-1.030) Urine Protein Trace (NEGATIVE) mg/dL Urine Glucose (UA) Normal (NEGATIVE) mg/dL Urine Ketones 15 H (NEGATIVE) mg/dL Urine Occult Blood Trace (NEGATIVE) Urine Nitrite Negative (NEGAITVE) Urine Bilirubin Negative (NEGATIVE) Urine Urobilinogen Normal (NORMAL) mg/dL Ur Leukocyte Esterase Negative (NEGATIVE) Urine RBC 0-5 (0-5) Urine WBC 0-5 (0-5) Ur Epithelial Cells Few Amorphous Sediment Not seen Urine Bacteria Few Urine Mucus Not seen Med Orders - Current: Current Medications Acetaminophen (Tylenol) 650 mg PO Q4H PRN PRN Reason: Pain (Mild 1-3)/fever Last Admin: 05/25/18 02:27 Dose: 650 mg Albuterol (Proventil Neb Soln) 2.5 mg NEB Q4H PRN PRN Reason: Shortness Of Breath/wheezing Last Admin: 05/25/18 12:42 Dose: 2.5 mg Benzocaine/Menthol (Cepacol Sore Throat) 1 lozenge MUCMEM ASDIRECTED PRN PRN Reason: Other Lactated Ringer's (Ringers, Lactated) 1,000 mls @ 100 mls/hr IV ASDIRECTED [facility] Last Admin: 05/26/18 10:37 Dose: 100 mls/hr Magnesium Sulfate 2 gm/ Premix 50 mls @ 25 mls/hr IV Q6H [facility] Stop: 05/26/18 17:59 Last Admin: 05/26/18 16:28 Dose: 25 mls/hr Ibuprofen (Motrin) 600 mg PO Q6H PRN PRN Reason: Pain/Fever Last Admin: 05/26/18 12:21 Dose: 600 mg Magnesium Hydroxide (Milk Of Magnesia) 30 ml PO Q12H PRN PRN Reason: Constipation Magnesium Oxide (Magnesium Oxide) 400 mg PO BID [facility] Last Admin: 05/26/18 10:34 Dose: 400 mg Morphine Sulfate (Morphine) 4 mg IVPUSH Q2H PRN PRN Reason: Pain (severe 7-10) Ondansetron HCl (Zofran Odt) 4 mg PO Q6H PRN PRN Reason: Nausea able to take PO Last Admin: 05/26/18 13:40 Dose: 4 mg Ondansetron HCl (Zofran) 4 mg IV Q6H PRN PRN Reason: Nausea/Vomiting Last Admin: 05/26/18 09:10 Dose: 4 mg Pneumococcal Polyvalent Vaccine (Pneumovax 23) 0.5 ml IM .ONCE ONE Stop: 05/27/18 09:01 Senna/Docusate Sodium (Senna Plus) 1 tab PO BID PRN PRN Reason: Constipation Last Admin: 05/26/18 07:41 Dose: 1 tab Discontinued Medications Bandage/Support Products ( Nasal Educational Aide) 1 applic NASBOTH ONETIME ONE Stop: 05/25/18 12:54 Last Admin: 05/25/18 13:00 Dose: 1 dose Bupivacaine HCl/Epinephrine Bitart (Marcaine 0.5%/Epinephrine 1:200,000) Confirm Administered Dose 50 ml .ROUTE .STK-MED ONE Stop: 05/25/18 08:22 Fentanyl (Sublimaze) Confirm Administered Dose 100 mcg .ROUTE .STK-MED ONE Stop: 05/25/18 08:19 Hydromorphone HCl (Dilaudid) 0.5 mg IVPUSH ONETIME ONE Stop: 05/24/18 14:54 Last Admin: 05/24/18 15:12 Dose: 0.5 mg Hydromorphone HCl (Dilaudid) Confirm Administered Dose 0.5 mg .ROUTE .STK-MED ONE Stop: 05/24/18 14:55 Last Admin: 05/24/18 17:11 Dose: Not Given Hydromorphone HCl (Dilaudid) 1 mg IVPUSH Q2H PRN PRN Reason: Pain (severe 7-10) Last Admin: 05/24/18 17:21 Dose: 0.5 mg Lactated Ringer's (Ringers, Lactated) Confirm Administered Dose 1,000 mls @ as directed .ROUTE .STK-MED ONE Stop: 05/25/18 14:54 Midazolam HCl (Versed 1 Mg/Ml) Confirm Administered Dose 2 mg .ROUTE .STK-MED ONE Stop: 05/25/18 08:19 Oxycodone HCl (Oxycodone) 5 mg PO Q4H PRN PRN Reason: Pain (moderate 4-6) Last Admin: 05/26/18 13:39 Dose: 5 mg Propofol (Diprivan 20 Ml) Confirm Administered Dose 200 mg .ROUTE .STK-MED ONE Stop: 05/25/18 08:19 - Exam Wound/Incisions: Dressing Dry and Intact, No Drainage General: Alert, Oriented HEENT: Pupils Equal Neck: Supple Skin: Warm, Dry, Intact Neurological: No New Focal Deficit Psy/Mental Status: Alert, Normal Affect, Normal Mood - Problem List & Annotations (1) Fracture, intertrochanteric, left femur SNOMED Code(s): 756344938 Code(s): S72.142A - DISPLACED INTERTROCHANTERIC FRACTURE OF LEFT FEMUR, INIT Status: Acute Current Visit: Yes Qualifiers: Encounter type: initial encounter Fracture type: closed Fracture alignment: nondisplaced Qualified Code(s): S72.145A - Nondisplaced intertrochanteric fracture of left femur, initial encounter for closed fracture - Problem List Review Problem List Initiated/Reviewed/Updated: Yes - My Orders Last 24 Hours: Active Orders 24 hr Category Date Time Status Heart Healthy Diet [DIET] Diet 05/25/18 Dinner Active MAGNESIUM [CHEM] Timed Lab 05/27/18 05:00 Ordered Acetaminophen/HYDROcodone [[place] 325-5 MG] Med 05/26/18 17:13 Ordered 1 tab PO Q3H PRN Magnesium Oxide Med 05/26/18 09:15 Active 400 mg PO BID Magnesium Sulfate/Water [Magnesium Sulfate 2 GM in Med 05/26/18 10:00 Active Water 50 ML] 2 gm Premix Bag 1 bag IV Q6H Pneumococcal Polyvalent-23 Vac [Pneumovax 23] Med 05/27/18 09:00 Once 0.5 ml IM .ONCE ONE Medication Orders Acetaminophen (Tylenol) 650 mg PO Q4H PRN PRN Reason: Pain (Mild 1-3)/fever Last Admin: 05/25/18 02:27 Dose: 650 mg Albuterol (Proventil Neb Soln) 2.5 mg NEB Q4H PRN PRN Reason: Shortness Of Breath/wheezing Last Admin: 05/25/18 12:42 Dose: 2.5 mg Benzocaine/Menthol (Cepacol Sore Throat) 1 lozenge MUCMEM ASDIRECTED PRN PRN Reason: Other Lactated Ringer's (Ringers, Lactated) 1,000 mls @ 100 mls/hr IV ASDIRECTED [facility] Last Admin: 05/26/18 10:37 Dose: 100 mls/hr Infusion: 05/26/18 08:00 Dose: 100 mls/hr Admin: 05/25/18 22:00 Dose: 100 mls/hr Infusion: 05/25/18 21:05 Dose: 100 mls/hr Admin: 05/25/18 11:05 Dose: 100 mls/hr Infusion: 05/25/18 11:05 Dose: 100 mls/hr Admin: 05/25/18 02:29 Dose: 100 mls/hr Magnesium Sulfate 2 gm/ Premix 50 mls @ 25 mls/hr IV Q6H [facility] Stop: 05/26/18 17:59 Last Admin: 05/26/18 16:28 Dose: 25 mls/hr Infusion: 05/26/18 12:35 Dose: 25 mls/hr Admin: 05/26/18 10:35 Dose: 25 mls/hr Ibuprofen (Motrin) 600 mg PO Q6H PRN PRN Reason: Pain/Fever Last Admin: 05/26/18 12:21 Dose: 600 mg Admin: 05/25/18 00:24 Dose: 600 mg Magnesium Hydroxide (Milk Of Magnesia) 30 ml PO Q12H PRN PRN Reason: Constipation Magnesium Oxide (Magnesium Oxide) 400 mg PO BID [facility] Last Admin: 05/26/18 10:34 Dose: 400 mg Morphine Sulfate (Morphine) 4 mg IVPUSH Q2H PRN PRN Reason: Pain (severe 7-10) Ondansetron HCl (Zofran Odt) 4 mg PO Q6H PRN PRN Reason: Nausea able to take PO Last Admin: 05/26/18 13:40 Dose: 4 mg Ondansetron HCl (Zofran) 4 mg IV Q6H PRN PRN Reason: Nausea/Vomiting Last Admin: 05/26/18 09:10 Dose: 4 mg Admin: 05/24/18 17:41 Dose: 4 mg Pneumococcal Polyvalent Vaccine (Pneumovax 23) 0.5 ml IM .ONCE ONE Stop: 05/27/18 09:01 Senna/Docusate Sodium (Senna Plus) 1 tab PO BID PRN PRN Reason: Constipation Last Admin: 05/26/18 07:41 Dose: 1 tab - Assessment Assessment (Free Text/Narrative):: Doing well with the exception of nausea/vomiting. Change pain meds. Continue PT/OT. - Plan Plan (Free Text/Narrative):: Up with PT/OT, should be able to return home with home health.
[2018-05-27] MEDS: Ibuprofen 600 MG Tab PO PRN ×3 (03:39→17:28)
[2018-05-27] MEDS ORDERED: Pneumococcal Polyvalent-23 Vaccine 0.5 ML SDV IM ONE (09:00)
[2018-05-27] MEDS: Magnesium Oxide 400 MG Tab PO SCH ×2 (10:17→20:13)
--- NOTE | 2018-05-27 11:51 | PCM.PN ---
- General Info Date of Service: 05/27/18 Subjective Update: Mr. Morgan is done well since yesterday, nausea has resolved. He has been able to ambulate short distances with use of his walker, and seems to be doing fairly well. Still questions about his ability to function safely at home, current plan is to proceed with correction versus inpatient rehabilitation placement. Functional Status: Reports: Tolerating Diet, Ambulating, Urinating - Review of Systems General: Reports: Weakness. Denies: Fever, Chills Pulmonary: Reports: No Symptoms Cardiovascular: Reports: No Symptoms Gastrointestinal: Reports: No Symptoms - Patient Data Vitals - Most Recent: Last Vital Signs Temp 96 F 05/27/18 11:00 Pulse 78 05/27/18 11:00 Resp 18 05/27/18 11:00 BP 130/68 05/27/18 11:00 Pulse Ox 92 L 05/27/18 11:00 Weight - Most Recent: 165 lb 0.009 oz I&O - Last 24 Hours: Intake & Output 05/26/18 05/27/18 05/27/18 22:59 06:59 14:59 Intake Total 2502 200 Output Total 700 350 300 Balance 1802 -150 -300 Lab Results Last 24 Hours: Laboratory Results - last 24 hr 05/27/18 Range/Units 04:55 Magnesium 2.3 (1.8-2.4) mg/dL Med Orders - Current: Current Medications Acetaminophen (Tylenol) 650 mg PO Q4H PRN PRN Reason: Pain (Mild 1-3)/fever Last Admin: 05/25/18 02:27 Dose: 650 mg Hydrocodone Bitart/Acetaminophen ([place] 325-5 Mg) 1 tab PO Q3H PRN PRN Reason: Pain (moderate 4-6) Last Admin: 05/26/18 20:14 Dose: 1 tab Albuterol (Proventil Neb Soln) 2.5 mg NEB Q4H PRN PRN Reason: Shortness Of Breath/wheezing Last Admin: 05/25/18 12:42 Dose: 2.5 mg Benzocaine/Menthol (Cepacol Sore Throat) 1 lozenge MUCMEM ASDIRECTED PRN PRN Reason: Other Ibuprofen (Motrin) 600 mg PO Q6H PRN PRN Reason: Pain/Fever Last Admin: 05/27/18 10:25 Dose: 600 mg Magnesium Hydroxide (Milk Of Magnesia) 30 ml PO Q12H PRN PRN Reason: Constipation Magnesium Oxide (Magnesium Oxide) 400 mg PO BID [facility] Last Admin: 05/27/18 10:17 Dose: 400 mg Morphine Sulfate (Morphine) 4 mg IVPUSH Q2H PRN PRN Reason: Pain (severe 7-10) Ondansetron HCl (Zofran Odt) 4 mg PO Q6H PRN PRN Reason: Nausea able to take PO Last Admin: 05/26/18 20:15 Dose: 4 mg Ondansetron HCl (Zofran) 4 mg IV Q6H PRN PRN Reason: Nausea/Vomiting Last Admin: 05/26/18 09:10 Dose: 4 mg Senna/Docusate Sodium (Senna Plus) 1 tab PO BID PRN PRN Reason: Constipation Last Admin: 05/26/18 07:41 Dose: 1 tab Discontinued Medications Bandage/Support Products ( Nasal Mission Worker) 1 applic NASBOTH ONETIME ONE Stop: 05/25/18 12:54 Last Admin: 05/25/18 13:00 Dose: 1 dose Bupivacaine HCl/Epinephrine Bitart (Marcaine 0.5%/Epinephrine 1:200,000) Confirm Administered Dose 50 ml .ROUTE .STK-MED ONE Stop: 05/25/18 08:22 Fentanyl (Sublimaze) Confirm Administered Dose 100 mcg .ROUTE .STK-MED ONE Stop: 05/25/18 08:19 Hydromorphone HCl (Dilaudid) 0.5 mg IVPUSH ONETIME ONE Stop: 05/24/18 14:54 Last Admin: 05/24/18 15:12 Dose: 0.5 mg Hydromorphone HCl (Dilaudid) Confirm Administered Dose 0.5 mg .ROUTE .STK-MED ONE Stop: 05/24/18 14:55 Last Admin: 05/24/18 17:11 Dose: Not Given Hydromorphone HCl (Dilaudid) 1 mg IVPUSH Q2H PRN PRN Reason: Pain (severe 7-10) Last Admin: 05/24/18 17:21 Dose: 0.5 mg Lactated Ringer's (Ringers, Lactated) 1,000 mls @ 100 mls/hr IV ASDIRECTED [facility] Last Admin: 05/26/18 10:37 Dose: 100 mls/hr Lactated Ringer's (Ringers, Lactated) Confirm Administered Dose 1,000 mls @ as directed .ROUTE .STK-MED ONE Stop: 05/25/18 14:54 Magnesium Sulfate 2 gm/ Premix 50 mls @ 25 mls/hr IV Q6H CARLOS Stop: 05/26/18 17:59 Last Admin: 05/26/18 16:28 Dose: 25 mls/hr Midazolam HCl (Versed 1 Mg/Ml) Confirm Administered Dose 2 mg .ROUTE .STK-MED ONE Stop: 05/25/18 08:19 Oxycodone HCl (Oxycodone) 5 mg PO Q4H PRN PRN Reason: Pain (moderate 4-6) Last Admin: 05/26/18 13:39 Dose: 5 mg Pneumococcal Polyvalent Vaccine (Pneumovax 23) 0.5 ml IM .ONCE ONE Stop: 05/27/18 09:01 Last Admin: 05/27/18 10:19 Dose: Not Given Propofol (Diprivan 20 Ml) Confirm Administered Dose 200 mg .ROUTE .STK-MED ONE Stop: 05/25/18 08:19 - Exam General: Alert, Oriented, Cooperative, Mild Distress Lungs: Decreased Breath Sounds, Wheezing. No: Rales, Rhonchi, Rub Cardiovascular: Regular Rate, Regular Rhythm, No Murmurs GI/Abdominal Exam: Soft, Non-Tender, No Organomegaly, No Distention Extremities: Non-Tender, No Pedal Edema - Problem List Review Problem List Initiated/Reviewed/Updated: Yes - Plan Plan:: ASSESSMENT AND PLAN - Nondisplaced intertrochanteric fracture of the left hip - secondary to fall with trauma. Status post surgical repair 2 days ago. Ambulating with use of walker. -Postoperative care per Dr. Paris Tobacco dependence - no interest in quitting at this time. No history of COPD. -Encourage cessation Maintenance issues - - DVT prophylaxis - mechanical - GI prophylaxis - not indicated - Nutrition - regular diet this evening and nothing by mouth after midnight - Power catheter - not indicated at this time CODE STATUS - full code Admission justification - This patient will be admitted for inpatient services and is medically appropriate meeting medical necessity for inpatient admission as outlined in my documentation. I reasonably expect the patient will require inpatient services that span a period time over 2 midnights. I reasonably expect this patient to be discharged or transferred within 96 hours [facility] Disposition - I would anticipate discharge to correction versus acute inpatient rehabilitation
[2018-05-27] MEDS: Nozin Nasal Sanitizer NASBOTH SCH (20:13)
[2018-05-28] MEDS: Ibuprofen 600 MG Tab PO PRN ×3 (03:31→21:11)
[2018-05-28] MEDS: Magnesium Oxide 400 MG Tab PO SCH ×2 (08:11→21:11)
[2018-05-28] MEDS: Nozin Nasal Sanitizer NASBOTH SCH ×2 (08:11→21:11)
--- NOTE | 2018-05-28 11:49 | PCM.PN ---
- General Info Date of Service: 05/28/18 Subjective Update: Mr Morgan has been stable since yesterday. Energy level and ambulation continued to improve on a daily basis. Appetite has been good and he has been having regular bowel movements. Functional Status: Reports: Pain Controlled, Tolerating Diet, Ambulating, Urinating - Review of Systems General: Reports: Weakness. Denies: Fever, Chills Pulmonary: Reports: No Symptoms Cardiovascular: Reports: No Symptoms Gastrointestinal: Reports: No Symptoms - Patient Data Vitals - Most Recent: Last Vital Signs Temp 96.7 F 05/28/18 08:05 Pulse 104 H 05/28/18 08:05 Resp 18 05/28/18 08:05 BP 135/74 05/28/18 08:05 Pulse Ox 90 L 05/28/18 08:05 Weight - Most Recent: 165 lb 0.009 oz I&O - Last 24 Hours: Intake & Output 05/27/18 05/28/18 05/28/18 22:59 06:59 14:59 Intake Total 200 Output Total 400 1000 100 Balance -400 -1000 100 Med Orders - Current: Current Medications Acetaminophen (Tylenol) 650 mg PO Q4H PRN PRN Reason: Pain (Mild 1-3)/fever Last Admin: 05/25/18 02:27 Dose: 650 mg Hydrocodone Bitart/Acetaminophen ([place] 325-5 Mg) 1 tab PO Q3H PRN PRN Reason: Pain (moderate 4-6) Last Admin: 05/26/18 20:14 Dose: 1 tab Albuterol (Proventil Neb Soln) 2.5 mg NEB Q4H PRN PRN Reason: Shortness Of Breath/wheezing Last Admin: 05/25/18 12:42 Dose: 2.5 mg Bandage/Support Products ( Nasal Electronic Field Service Engineer) 1 applic NASBOTH BID CARLOS Last Admin: 05/28/18 08:11 Dose: 1 applic Benzocaine/Menthol (Cepacol Sore Throat) 1 lozenge MUCMEM ASDIRECTED PRN PRN Reason: Other Enoxaparin Sodium (Lovenox) 40 mg SUBCUT DAILY CARLOS Ibuprofen (Motrin) 600 mg PO Q6H PRN PRN Reason: Pain/Fever Last Admin: 05/28/18 03:31 Dose: 600 mg Magnesium Hydroxide (Milk Of Magnesia) 30 ml PO Q12H PRN PRN Reason: Constipation Last Admin: 05/28/18 03:31 Dose: 30 ml Magnesium Oxide (Magnesium Oxide) 400 mg PO BID CARLOS Last Admin: 05/28/18 08:11 Dose: 400 mg Morphine Sulfate (Morphine) 4 mg IVPUSH Q2H PRN PRN Reason: Pain (severe 7-10) Ondansetron HCl (Zofran Odt) 4 mg PO Q6H PRN PRN Reason: Nausea able to take PO Last Admin: 05/26/18 20:15 Dose: 4 mg Ondansetron HCl (Zofran) 4 mg IV Q6H PRN PRN Reason: Nausea/Vomiting Last Admin: 05/26/18 09:10 Dose: 4 mg Senna/Docusate Sodium (Senna Plus) 1 tab PO BID PRN PRN Reason: Constipation Last Admin: 05/28/18 03:31 Dose: 1 tab Discontinued Medications Bandage/Support Products ( Nasal Electronic Field Service Engineer) 1 applic NASBOTH ONETIME ONE Stop: 05/25/18 12:54 Last Admin: 05/25/18 13:00 Dose: 1 dose Bupivacaine HCl/Epinephrine Bitart (Marcaine 0.5%/Epinephrine 1:200,000) Confirm Administered Dose 50 ml .ROUTE .STK-MED ONE Stop: 05/25/18 08:22 Fentanyl (Sublimaze) Confirm Administered Dose 100 mcg .ROUTE .STK-MED ONE Stop: 05/25/18 08:19 Hydromorphone HCl (Dilaudid) 0.5 mg IVPUSH ONETIME ONE Stop: 05/24/18 14:54 Last Admin: 05/24/18 15:12 Dose: 0.5 mg Hydromorphone HCl (Dilaudid) Confirm Administered Dose 0.5 mg .ROUTE .STK-MED ONE Stop: 05/24/18 14:55 Last Admin: 05/24/18 17:11 Dose: Not Given Hydromorphone HCl (Dilaudid) 1 mg IVPUSH Q2H PRN PRN Reason: Pain (severe 7-10) Last Admin: 05/24/18 17:21 Dose: 0.5 mg Lactated Ringer's (Ringers, Lactated) 1,000 mls @ 100 mls/hr IV ASDIRECTED [facility] Last Admin: 05/26/18 10:37 Dose: 100 mls/hr Lactated Ringer's (Ringers, Lactated) Confirm Administered Dose 1,000 mls @ as directed .ROUTE .STK-MED ONE Stop: 05/25/18 14:54 Magnesium Sulfate 2 gm/ Premix 50 mls @ 25 mls/hr IV Q6H CARLOS Stop: 05/26/18 17:59 Last Admin: 05/26/18 16:28 Dose: 25 mls/hr Midazolam HCl (Versed 1 Mg/Ml) Confirm Administered Dose 2 mg .ROUTE .STK-MED ONE Stop: 05/25/18 08:19 Oxycodone HCl (Oxycodone) 5 mg PO Q4H PRN PRN Reason: Pain (moderate 4-6) Last Admin: 05/26/18 13:39 Dose: 5 mg Pneumococcal Polyvalent Vaccine (Pneumovax 23) 0.5 ml IM .ONCE ONE Stop: 05/27/18 09:01 Last Admin: 05/27/18 10:19 Dose: Not Given Propofol (Diprivan 20 Ml) Confirm Administered Dose 200 mg .ROUTE .STK-MED ONE Stop: 05/25/18 08:19 - Exam General: Alert, Oriented, Cooperative, No Acute Distress Lungs: Clear to Auscultation, Normal Respiratory Effort Cardiovascular: Regular Rate, Regular Rhythm, No Murmurs GI/Abdominal Exam: Soft, Non-Tender, No Organomegaly, No Distention - Problem List Review Problem List Initiated/Reviewed/Updated: Yes - My Orders Last 24 Hours: My Active Orders 05/28/18 11:45 Enoxaparin [Lovenox] 40 mg SUBCUT DAILY - Plan Plan:: ASSESSMENT AND PLAN - Nondisplaced intertrochanteric fracture of the left hip - secondary to fall with trauma. Status post surgical repair 3 days ago. Ambulating with use of walker. -Postoperative care per Dr. Paris Tobacco dependence - no interest in quitting at this time. No history of COPD. -Encourage cessation Maintenance issues - - DVT prophylaxis - Lovenox 40 mg subcutaneous daily - GI prophylaxis - not indicated - Nutrition - regular diet this evening and nothing by mouth after midnight - Power catheter - not indicated at this time CODE STATUS - full code Admission justification - This patient will be admitted for inpatient services and is medically appropriate meeting medical necessity for inpatient admission as outlined in my documentation. I reasonably expect the patient will require inpatient services that span a period time over 2 midnights. I reasonably expect this patient to be discharged or transferred within 96 hours [facility]. Disposition - I would anticipate discharge to alf versus acute inpatient rehabilitation
[2018-05-28] MEDS ORDERED: Enoxaparin 40 MG/0.4 ML Syringe SUBCUT SCH (12:00)
--- NOTE | 2018-05-28 12:45 | PCM.SURGPN ---
- General Info Date of Service: 05/27/18 POD#: 2 Post-Op Diagnosis: S/P intramedullary nailing left hip, IT fracture Functional Status: Reports: Pain Controlled - Review of Systems General: Reports: No Symptoms Skin: Reports: No Symptoms Neurological: Reports: No Symptoms Psychiatric: Reports: No Symptoms - Patient Data Vitals - Most Recent: Last Vital Signs Temp 35.9 C 05/28/18 08:05 Pulse 104 H 05/28/18 08:05 Resp 18 05/28/18 08:05 BP 135/74 05/28/18 08:05 Pulse Ox 90 L 05/28/18 08:05 Weight - Most Recent: 74.843 kg I&O - Last 24 Hours: Intake & Output 05/27/18 05/28/18 05/28/18 22:59 06:59 14:59 Intake Total 200 Output Total 400 1000 100 Balance -400 -1000 100 Med Orders - Current: Current Medications Acetaminophen (Tylenol) 650 mg PO Q4H PRN PRN Reason: Pain (Mild 1-3)/fever Last Admin: 05/25/18 02:27 Dose: 650 mg Hydrocodone Bitart/Acetaminophen ([place] 325-5 Mg) 1 tab PO Q3H PRN PRN Reason: Pain (moderate 4-6) Last Admin: 05/26/18 20:14 Dose: 1 tab Albuterol (Proventil Neb Soln) 2.5 mg NEB Q4H PRN PRN Reason: Shortness Of Breath/wheezing Last Admin: 05/25/18 12:42 Dose: 2.5 mg Bandage/Support Products ( Nasal Drop Hammer Mechanic) 1 applic NASBOTH BID [facility] Last Admin: 05/28/18 08:11 Dose: 1 applic Benzocaine/Menthol (Cepacol Sore Throat) 1 lozenge MUCMEM ASDIRECTED PRN PRN Reason: Other Enoxaparin Sodium (Lovenox) 40 mg SUBCUT Q24H CARLOS Ibuprofen (Motrin) 600 mg PO Q6H PRN PRN Reason: Pain/Fever Last Admin: 05/28/18 03:31 Dose: 600 mg Magnesium Hydroxide (Milk Of Magnesia) 30 ml PO Q12H PRN PRN Reason: Constipation Last Admin: 05/28/18 03:31 Dose: 30 ml Magnesium Oxide (Magnesium Oxide) 400 mg PO BID [facility] Last Admin: 05/28/18 08:11 Dose: 400 mg Morphine Sulfate (Morphine) 4 mg IVPUSH Q2H PRN PRN Reason: Pain (severe 7-10) Ondansetron HCl (Zofran Odt) 4 mg PO Q6H PRN PRN Reason: Nausea able to take PO Last Admin: 05/26/18 20:15 Dose: 4 mg Ondansetron HCl (Zofran) 4 mg IV Q6H PRN PRN Reason: Nausea/Vomiting Last Admin: 05/26/18 09:10 Dose: 4 mg Senna/Docusate Sodium (Senna Plus) 1 tab PO BID PRN PRN Reason: Constipation Last Admin: 05/28/18 03:31 Dose: 1 tab Discontinued Medications Bandage/Support Products ( Nasal Drop Hammer Mechanic) 1 applic NASBOTH ONETIME ONE Stop: 05/25/18 12:54 Last Admin: 05/25/18 13:00 Dose: 1 dose Bupivacaine HCl/Epinephrine Bitart ([place]aine 0.5%/Epinephrine 1:200,000) Confirm Administered Dose 50 ml .ROUTE .STK-MED ONE Stop: 05/25/18 08:22 Fentanyl (Sublimaze) Confirm Administered Dose 100 mcg .ROUTE .STK-MED ONE Stop: 05/25/18 08:19 Hydromorphone HCl (Dilaudid) 0.5 mg IVPUSH ONETIME ONE Stop: 05/24/18 14:54 Last Admin: 05/24/18 15:12 Dose: 0.5 mg Hydromorphone HCl (Dilaudid) Confirm Administered Dose 0.5 mg .ROUTE .STK-MED ONE Stop: 05/24/18 14:55 Last Admin: 05/24/18 17:11 Dose: Not Given Hydromorphone HCl (Dilaudid) 1 mg IVPUSH Q2H PRN PRN Reason: Pain (severe 7-10) Last Admin: 05/24/18 17:21 Dose: 0.5 mg Lactated Ringer's (Ringers, Lactated) 1,000 mls @ 100 mls/hr IV ASDIRECTED [facility] Last Admin: 05/26/18 10:37 Dose: 100 mls/hr Lactated Ringer's (Ringers, Lactated) Confirm Administered Dose 1,000 mls @ as directed .ROUTE .STK-MED ONE Stop: 05/25/18 14:54 Magnesium Sulfate 2 gm/ Premix 50 mls @ 25 mls/hr IV Q6H CARLOS Stop: 05/26/18 17:59 Last Admin: 05/26/18 16:28 Dose: 25 mls/hr Midazolam HCl (Versed 1 Mg/Ml) Confirm Administered Dose 2 mg .ROUTE .STK-MED ONE Stop: 05/25/18 08:19 Oxycodone HCl (Oxycodone) 5 mg PO Q4H PRN PRN Reason: Pain (moderate 4-6) Last Admin: 05/26/18 13:39 Dose: 5 mg Pneumococcal Polyvalent Vaccine (Pneumovax 23) 0.5 ml IM .ONCE ONE Stop: 05/27/18 09:01 Last Admin: 05/27/18 10:19 Dose: Not Given Propofol (Diprivan 20 Ml) Confirm Administered Dose 200 mg .ROUTE .STK-MED ONE Stop: 05/25/18 08:19 - Exam Wound/Incisions: Dressing Dry and Intact General: Alert, Oriented Skin: Warm, Dry, Intact Neurological: No New Focal Deficit Psy/Mental Status: Alert Physical Findings Comment:: Able to flex hip actively, minimal swelling - Problem List & Annotations (1) Fracture, intertrochanteric, left femur SNOMED Code(s): 299338808 Code(s): S72.142A - DISPLACED INTERTROCHANTERIC FRACTURE OF LEFT FEMUR, INIT Status: Acute Current Visit: Yes Qualifiers: Encounter type: initial encounter Fracture type: closed Fracture alignment: nondisplaced Qualified Code(s): S72.145A - Nondisplaced intertrochanteric fracture of left femur, initial encounter for closed fracture - Problem List Review Problem List Initiated/Reviewed/Updated: Yes - My Orders Last 24 Hours: Active Orders 24 hr Category Date Time Status Dressing Change [Wound Care] [RC] DAILY Care 05/27/18 15:37 Active May Shower [RC] ASDIRECTED Care 05/27/18 15:38 Active Enoxaparin [Lovenox] Med 05/28/18 12:00 Active 40 mg SUBCUT Q24H Nozin [ Nasal Drop Hammer Mechanic] Med 05/27/18 21:00 Active 1 applic NASBOTH BID Medication Orders Acetaminophen (Tylenol) 650 mg PO Q4H PRN PRN Reason: Pain (Mild 1-3)/fever Last Admin: 05/25/18 02:27 Dose: 650 mg Hydrocodone Bitart/Acetaminophen ([place] 325-5 Mg) 1 tab PO Q3H PRN PRN Reason: Pain (moderate 4-6) Last Admin: 05/26/18 20:14 Dose: 1 tab Albuterol (Proventil Neb Soln) 2.5 mg NEB Q4H PRN PRN Reason: Shortness Of Breath/wheezing Last Admin: 05/25/18 12:42 Dose: 2.5 mg Bandage/Support Products ( Nasal Drop Hammer Mechanic) 1 applic NASBOTH BID CARLOS Last Admin: 05/28/18 08:11 Dose: 1 applic Admin: 05/27/18 20:13 Dose: 1 applic Benzocaine/Menthol (Cepacol Sore Throat) 1 lozenge MUCMEM ASDIRECTED PRN PRN Reason: Other Enoxaparin Sodium (Lovenox) 40 mg SUBCUT Q24H CARLOS Ibuprofen (Motrin) 600 mg PO Q6H PRN PRN Reason: Pain/Fever Last Admin: 05/28/18 03:31 Dose: 600 mg Admin: 05/27/18 17:28 Dose: 600 mg Admin: 05/27/18 10:25 Dose: 600 mg Admin: 05/27/18 03:39 Dose: 600 mg Admin: 05/26/18 20:15 Dose: 600 mg Admin: 05/26/18 12:21 Dose: 600 mg Admin: 05/25/18 00:24 Dose: 600 mg Magnesium Hydroxide (Milk Of Magnesia) 30 ml PO Q12H PRN PRN Reason: Constipation Last Admin: 05/28/18 03:31 Dose: 30 ml Magnesium Oxide (Magnesium Oxide) 400 mg PO BID CARLOS Last Admin: 05/28/18 08:11 Dose: 400 mg Admin: 05/27/18 20:13 Dose: 400 mg Admin: 05/27/18 10:17 Dose: 400 mg Admin: 05/26/18 20:15 Dose: 400 mg Admin: 05/26/18 10:34 Dose: 400 mg Morphine Sulfate (Morphine) 4 mg IVPUSH Q2H PRN PRN Reason: Pain (severe 7-10) Ondansetron HCl (Zofran Odt) 4 mg PO Q6H PRN PRN Reason: Nausea able to take PO Last Admin: 05/26/18 20:15 Dose: 4 mg Admin: 05/26/18 13:40 Dose: 4 mg Ondansetron HCl (Zofran) 4 mg IV Q6H PRN PRN Reason: Nausea/Vomiting Last Admin: 05/26/18 09:10 Dose: 4 mg Admin: 05/24/18 17:41 Dose: 4 mg Senna/Docusate Sodium (Senna Plus) 1 tab PO BID PRN PRN Reason: Constipation Last Admin: 05/28/18 03:31 Dose: 1 tab Admin: 05/26/18 07:41 Dose: 1 tab - Assessment Assessment (Free Text/Narrative):: Did very well with PT this afternoon. Progressing nicely. - Plan Plan (Free Text/Narrative):: Continue PT/OT. Placement vs home with Home Health.
--- NOTE | 2018-05-28 12:55 | PCM.SN ---
- Free Text/Narrative Note: To Whom It May Concern: Trent Morgan, date of 1945, is under my care for treatment of a recent injury to his left hip. He sustained a fracture that required surgical fixation and at the time of this writing is still hospitalized. The injury occured on 05/24/18 and surgery took place on 05/26/18. As such he is unable to travel in the near future. He requires care and has limited mobility making airplane and ship travel impossible at this time. Please take this into consideration as his reason for cancellation of his upcoming trip. His treatment will require blood thinners to prevent Deep Venous Thrombosis (DVT), Physical Therapy and follow up physician appointment. If further clairification is needed please contact me at the Orthopedic Department at [phone]. Sincerely, Dylan Paris MD
[2018-05-29] MEDS: Nozin Nasal Sanitizer NASBOTH SCH (08:04)
[2018-05-29] MEDS: Magnesium Oxide 400 MG Tab PO SCH (08:04)
[2018-05-29] MEDS: Ibuprofen 600 MG Tab PO PRN (08:25)
--- NOTE | 2018-05-29 11:52 | PCM.DCSUM1 ---
Discharge Summary - Hospital Course Brief History: Mr. Morgan is a 73-year-old gentleman who was admitted through the emergency department after experiencing a fall at home resulting in a intertrochanteric hip fracture. - Discharge Data Discharge Date: 05/29/18 Discharge Disposition: DC/Tfer to SNF 03 Condition: Fair - Discharge Diagnosis/Problem(s) (1) COPD (chronic obstructive pulmonary disease) SNOMED Code(s): 42716912 ICD Code: J44.9 - CHRONIC OBSTRUCTIVE PULMONARY DISEASE, UNSPECIFIED Status : Acute Current Visit: Yes (2) Status post-operative repair of closed fracture of left hip SNOMED Code(s): 072720150 ICD Code: Z98.890 - OTHER SPECIFIED POSTPROCEDURAL STATES; Z87.81 - PERSONAL HISTORY OF (HEALED) TRAUMATIC FRACTURE Status: Acute Current Visit: Yes (3) Fracture, intertrochanteric, left femur SNOMED Code(s): 337449628 ICD Code: S72.142A - DISPLACED INTERTROCHANTERIC FRACTURE OF LEFT FEMUR, INIT Status: Acute Current Visit: Yes Qualifiers: Encounter type: initial encounter Fracture type: closed Fracture alignment: nondisplaced Qualified Code(s): S72.145A - Nondisplaced intertrochanteric fracture of left femur, initial encounter for closed fracture - Patient Summary/Data Operative Procedure(s) Performed: open treatment of intertrochanteric fracture left hip with intramedullary fixation device. Consults: Consultations 05/24/18 17:02 Consult to Physician [CONS] Routine Consulting Provider: Dylan Paris Call Completed to Consulting Physician: Yes Reason for Consult: left hip fracture Person Notified: LOAN REPRESENTATIVE Date Notified: 05/24/18 Special Instructions: surgery planned for Friday05/25/18 15:20 Consult to Physical Therapy [PT Evaluation and Treatment] [CONS] Routine Please Evaluate and Treat. PT Reason for Consult: Ambulation Pending Discharge: Yes Discharge Disposition: Home w Home Health Special Instructions: WBAT on left, S/P ORIF with intramedullary nail This query below is only for informational purposes and is not editable. Admission Diagnosis/Problem: Hip fracture requiring operative repair 05/25/18 15:21 Consult to Occupational Therapy [OT Evaluation and Treatment] [CONS] Routine Please Evaluate and Treat. OT Reason for Consult: ADL's Pending Discharge: Yes Discharge Disposition: Home w Home Health Special Instructions: WBAT and positioning as tolerated left leg This query below is only for informational purposes and is not editable. Admission Diagnosis/Problem: Hip fracture requiring operative repair Hospital Course: Mr. Morgan presented to the emergency room with left hip pain after slipping and falling. He reports he lost his balance while trying to open a get and fell landing on his left hip. He reported immediate severe sharp pain in the left hip. This did not radiate. He didn't take anything to make it feel better. Moving around makes the pain worse. Pain medications in the emergency room have provided some relief. He felt well prior to the fall. No complaints of shortness of breath, abdominal pain, change in bowel or bladder habits or fevers. He did have one surgery more than 50 years ago and no history of difficulty with anesthesia. No family history of difficulty with anesthesia. He reports that he is able to walk 4-5 blocks before he is slowed by mild shortness of breath. He does not have any exertional chest pain. He is able to climb up and down the stairs without any difficulty a regular basis. Workup in the emergency room revealed a nondisplaced intertrochanteric fracture left hip. He was admitted to the hospital and given pain medication as well as IV fluids for hydration. He was kept nothing by mouth after midnight in the morning after admission he was seen and evaluated by Dr. Paris for orthopedic consult. He was taken to the operating room by Dr. Paris and underwent intramedullary fixation of the intertrochanteric hip fracture. He did well during the postoperative course and began physical therapy, by the time of discharge was able to walk short distances with use of a walker. He was not felt to be safe for discharge to home and will [facility] to [facility] and occupational therapy. Activity will be as tolerated and he will resume his usual diet. Follow-up appointment with Dr. Paris will be in one to 2 weeks. - Patient Instructions Diet: Usual Diet as Tolerated Activity: As Tolerated Other/Special Instructions: Daily physical therapy and occupational therapy while at the [facility]. Schedule follow-up appointment with Dr. Paris in one to 2 weeks. - Discharge Plan *PRESCRIPTION DRUG MONITORING PROGRAM REVIEWED*: Not Applicable *COPY OF PRESCRIPTION DRUG MONITORING REPORT IN PATIENT BELLA: Not Applicable Prescriptions/Med Rec: Acetaminophen/HYDROcodone [[place] 325-5 MG] 1 tab PO Q3H PRN #20 tablet PRN Reason: Pain (Moderate 4-6) Enoxaparin [Lovenox] 40 mg SUBCUT Q24H #21 syringe Home Medications: Home Meds Acetaminophen/HYDROcodone [[place] 325-5 MG] 1 tab PO Q3H PRN #20 tablet 05/29/18 [Rx] Enoxaparin [Lovenox] 40 mg SUBCUT Q24H #21 syringe 05/29/18 [Rx] - Discharge Summary/Plan Comment DC Time >30 min.: No - Patient Data Vitals - Most Recent: Last Vital Signs Temp 96.1 F 05/29/18 07:00 Pulse 88 05/29/18 07:00 Resp 18 05/29/18 07:00 BP 131/80 05/29/18 07:00 Pulse Ox 93 L 05/29/18 07:00 Weight - Most Recent: 165 lb 0.009 oz I&O - Last 24 hours: Intake & Output 05/28/18 05/29/18 05/29/18 22:59 06:59 14:59 Intake Total 1885 700 Output Total 550 150 700 Balance 1335 -150 0 Med Orders - Current: Current Medications Acetaminophen (Tylenol) 650 mg PO Q4H PRN PRN Reason: Pain (Mild 1-3)/fever Last Admin: 05/25/18 02:27 Dose: 650 mg Hydrocodone Bitart/Acetaminophen ([place] 325-5 Mg) 1 tab PO Q3H PRN PRN Reason: Pain (moderate 4-6) Last Admin: 05/26/18 20:14 Dose: 1 tab Albuterol (Proventil Neb Soln) 2.5 mg NEB Q4H PRN PRN Reason: Shortness Of Breath/wheezing Last Admin: 05/25/18 12:42 Dose: 2.5 mg Bandage/Support Products ( Nasal Label Tacker) 1 applic NASBOTH BID [facility] Last Admin: 05/29/18 08:04 Dose: 1 applic Benzocaine/Menthol (Cepacol Sore Throat) 1 lozenge MUCMEM ASDIRECTED PRN PRN Reason: Other Enoxaparin Sodium (Lovenox) 40 mg SUBCUT Q24H [facility] Last Admin: 05/28/18 12:50 Dose: 40 mg Ibuprofen (Motrin) 600 mg PO Q6H PRN PRN Reason: Pain/Fever Last Admin: 05/29/18 08:25 Dose: 600 mg Magnesium Hydroxide (Milk Of Magnesia) 30 ml PO Q12H PRN PRN Reason: Constipation Last Admin: 05/28/18 03:31 Dose: 30 ml Magnesium Oxide (Magnesium Oxide) 400 mg PO BID [facility] Last Admin: 05/29/18 08:04 Dose: 400 mg Morphine Sulfate (Morphine) 4 mg IVPUSH Q2H PRN PRN Reason: Pain (severe 7-10) Ondansetron HCl (Zofran Odt) 4 mg PO Q6H PRN PRN Reason: Nausea able to take PO Last Admin: 05/26/18 20:15 Dose: 4 mg Ondansetron HCl (Zofran) 4 mg IV Q6H PRN PRN Reason: Nausea/Vomiting Last Admin: 05/26/18 09:10 Dose: 4 mg Senna/Docusate Sodium (Senna Plus) 1 tab PO BID PRN PRN Reason: Constipation Last Admin: 05/28/18 03:31 Dose: 1 tab Discontinued Medications Bandage/Support Products ( Nasal Label Tacker) 1 applic NASBOTH ONETIME ONE Stop: 05/25/18 12:54 Last Admin: 05/25/18 13:00 Dose: 1 dose Bupivacaine HCl/Epinephrine Bitart (Marcaine 0.5%/Epinephrine 1:200,000) Confirm Administered Dose 50 ml .ROUTE .STK-MED ONE Stop: 05/25/18 08:22 Fentanyl (Sublimaze) Confirm Administered Dose 100 mcg .ROUTE .STK-MED ONE Stop: 05/25/18 08:19 Hydromorphone HCl (Dilaudid) 0.5 mg IVPUSH ONETIME ONE Stop: 05/24/18 14:54 Last Admin: 05/24/18 15:12 Dose: 0.5 mg Hydromorphone HCl (Dilaudid) Confirm Administered Dose 0.5 mg .ROUTE .STK-MED ONE Stop: 05/24/18 14:55 Last Admin: 05/24/18 17:11 Dose: Not Given Hydromorphone HCl (Dilaudid) 1 mg IVPUSH Q2H PRN PRN Reason: Pain (severe 7-10) Last Admin: 05/24/18 17:21 Dose: 0.5 mg Lactated Ringer's (Ringers, Lactated) 1,000 mls @ 100 mls/hr IV ASDIRECTED [facility] Last Admin: 05/26/18 10:37 Dose: 100 mls/hr Lactated Ringer's (Ringers, Lactated) Confirm Administered Dose 1,000 mls @ as directed .ROUTE .STK-MED ONE Stop: 05/25/18 14:54 Magnesium Sulfate 2 gm/ Premix 50 mls @ 25 mls/hr IV Q6H [facility] Stop: 05/26/18 17:59 Last Admin: 05/26/18 16:28 Dose: 25 mls/hr Midazolam HCl (Versed 1 Mg/Ml) Confirm Administered Dose 2 mg .ROUTE .STK-MED ONE Stop: 05/25/18 08:19 Oxycodone HCl (Oxycodone) 5 mg PO Q4H PRN PRN Reason: Pain (moderate 4-6) Last Admin: 05/26/18 13:39 Dose: 5 mg Pneumococcal Polyvalent Vaccine (Pneumovax 23) 0.5 ml IM .ONCE ONE Stop: 05/27/18 09:01 Last Admin: 05/27/18 10:19 Dose: Not Given Propofol (Diprivan 20 Ml) Confirm Administered Dose 200 mg .ROUTE .STK-MED ONE Stop: 05/25/18 08:19 - Exam Quality Assessment: Reports: DVT Prophylaxis General: Reports: Alert, Oriented, Cooperative, Mild Distress Lungs: Reports: Clear to Auscultation, Normal Respiratory Effort Cardiovascular: Reports: Regular Rate, Regular Rhythm, No Murmurs GI/Abdominal Exam: Soft, Non-Tender, No Organomegaly, No Distention *Q Meaningful Use (DIS) - VTE *Q VTE Pharmacological Contraindications *Q: Patient Scheduled Surgery
== END 2018-05-29 13:05 | DRG 482 ==
LOC: JP.ED 14:45 → JP.MS 16:57
PROVIDERS: ADMIT Internal Medicine; ATTEND Hospitalist
PROC: 0QS706Z Reposition Left Upper Femur with Intramedullary Internal Fixation Device, Open Approach (ICD-10-PCS; principal; 2018-05-25)
DX: S72.145A Nondisplaced intertrochanteric fracture of left femur, initial encounter for closed fracture (principal); W00.0XXA Fall on same level due to ice and snow, initial encounter; Y93.9 Activity, unspecified; F17.210 Nicotine dependence, cigarettes, uncomplicated; M25.552 Pain in left hip; Z88.5 Allergy status to narcotic agent
CPT/HCPCS: 73502; J1170; 36415; 71045; 80048; 81001; 83735; 85025; 85027; 94640; 97110-GP; 97162-GP; 97165-GO; 97530-GP; 97535-GO; 97535-GP; 99285; A9270-GY; C1713; C1776; J1650; J2250; J2405; J2704; J3010; J3475; J3490; J7120